=== PATIENT | male | born 1970 | race Caucasian/White ===

== ENCOUNTER 2018-04-21 19:55 | Emergency (ER) | payer OTHER ==
[2018-04-21 21:01] LABS: ADD MAN DIFF? NO
[2018-04-21 21:04] LABS: BASOPHILS % 0.4 % (0.0-2.0); EOSINOPHILS # 0.2 10^3/ul (0.0-0.5); EOSINOPHILS % 3.9 % (0.0-7.0); HEMOGLOBIN 14.8 g/dl (14.0-18.0); LYMPHOCYTES # 1.7 10^3/ul (0.8-2.9); LYMPHOCYTES % 33.5 % (15.0-51.0); MEAN CORPUSCULAR HEMOGLOBIN 30.2 pg (29.0-33.0); MEAN CORPUSCULAR HGB CONC 35.2 g/dl (32.0-37.0); MEAN CORPUSCULAR VOLUME 85.7 fl (82.0-101.0); MEAN PLATELET VOLUME 11.6 fl (7.4-10.4); MONOCYTE # 0.4 10^3/ul (0.3-0.9); MONOCYTES % 7.3 % (0.0-11.0); NEUTROPHIL # 2.8 10^3/ul (1.6-7.5); NEUTROPHILS % 54.5 % (39.0-77.0); PLATELET COUNT 140 10^3/UL (140-415); POSITIVE DIFF @See below; RED CELL DISTRIBUTION WIDTH 12.2 % (11.5-14.5)
[2018-04-21 21:04] LABS: WHITE BLOOD COUNT 5.1 10^3/ul (4.8-10.8)
[2018-04-21] MEDS: LABETALOL HCL 20MG INJ IV ×2 (21:06→22:07)
[2018-04-21 21:21] LABS: ANION GAP 12 (8-16); BLOOD UREA NITROGEN 17 mg/dl (7-20); CALCIUM 9.1 mg/dl (8.4-10.2); CARBON DIOXIDE 27 mmol/L (21-31); CHLORIDE 104 mmol/L (97-110); CREATININE 0.82 mg/dl (0.61-1.24); GLUCOSE 298 mg/dl (70-220); SODIUM 139 mmol/L (135-144)
[2018-04-21 21:28] LABS: INR 0.91; PROTIME 12.3 Sec (11.9-14.9)
[2018-04-21 21:29] LABS: PARTIAL THROMBOPLASTIN TIME 24.8 Sec (25.0-35.0)
[2018-04-21] MEDS: TETRACAINE 0.5% 4 ML OPH BOTH EYES (22:06)
[2018-04-21] MEDS ORDERED: hydrALAzine 20 MG INJ (23:15)
[2018-04-21] MEDS: hydrALAzine 20 MG INJ IV (23:21)
[2018-04-21 23:34] LABS: EOSINOPHILS % (M) 11 % (0-7); GIANT THROMBO% (M) 1 % (0-0); LYMPHOCYTES #M 0.9 10^3/ul (0.8-2.9); LYMPHOCYTES % (M) 18 % (15-51); MONOCYTE #M 0.1 10^3/ul (0.3-0.9); MONOCYTES % (M) 3 % (0-11); PLATELET ESTIMATE DECREASED; REACTIVE LYMPHOCYTES #M 0.4 10^3/ul (0.0-0.0); REACTIVE LYMPHOCYTES% (M) 9 % (0-0); SEGMENTED NEUTROPHILS (M) % 59 % (39-77); SMUDGE%M 27 % (0-0)
[2018-04-21] MEDS: LOSARTAN 50 MG TAB PO (23:37)
== END 2018-04-21 23:39 | disposition home or self-care (01) ==
LOC: E/R 23:39
DX: H43.11 Vitreous hemorrhage, right eye (principal); I10 Essential (primary) hypertension; E11.65 Type 2 diabetes mellitus with hyperglycemia; E11.3593 Type 2 diabetes mellitus with proliferative diabetic retinopathy without macular edema, bilateral; Z79.4 Long term (current) use of insulin; Z79.82 Long term (current) use of aspirin
CPT/HCPCS: 36415; 80048; 82962; 85025; 85610; 85730; 96374; 96375; 96376; 99291-25